=== PATIENT | male | born 1975 | race Caucasian/White ===

== ENCOUNTER 2016-11-18 14:17 | Emergency (ER) | payer BC ==
[~2016-11-18] VITALS: Ht 177.8 cm; Wt 128.4 kg
[~2016-11-18 14:17] MED LIST: KLONOPIN0.5 MG PO; LISINOPRIL20 MG G-TUBE; TOPAMAX200 MG PO
[2016-11-18 14:33] LABS: POINT-OF-CARE METER ID UU14100415
[2016-11-18 14:49] LABS: ADD MIUA? YES; BILIRUBIN NEGATIVE; BLOOD SMALL; COLOR YELLOW ((YELLOW)); GLUCOSE (STRIP) NEGATIVE; KETONES NEGATIVE; LEUKOCYTES NEGATIVE; NITRITE NEGATIVE; PROTEIN (STRIP) NEGATIVE; UROBILINOGEN 0.2 MG/DL (0.2-1.0)
[2016-11-18 14:52] LABS: BACTERIA RARE /HPF; EPITHELIAL CELLS NONE SEEN /HPF; HYALINE CASTS 0-5 /LPF; MUCUS TRACE /LPF; RED BLOOD CELLS 0-5 /HPF (0-5); UCUL ADDED? NO; WHITE BLOOD CELLS 0-5 /HPF (0-5)
[2016-11-18 14:55] LABS: HEMATOCRIT 44.7 % (38.0-50.0); MCH 32.6 PG (29.0-34.0); MCHC 34.5 G/DL (30.0-36.0); MCV 94.5 FL (86-99); MEAN PLAT.VOLUME 9.5 uM^3 (9.0-12.4); PLATELET COUNT 248 K/uL (156-360); RBC DIS.WIDTH-CV 11.9 % (11.8-14.6); RBC DIS.WIDTH-SD 41.3 % (39-53); RED BLOOD COUNT 4.73 M/uL (4.00-5.50); WHITE BLOOD COUNT 10.6 K/uL (4.1-10.2)
[2016-11-18 15:04] LABS: CHLORIDE 105 mEq/L (99-109); POTASSIUM 4.1 mEq/L (3.7-5.4); SODIUM 137 mEq/L (136-147)
[2016-11-18 15:06] LABS: GLUCOSE 108 mg/dL (70-99)
[2016-11-18 15:07] LABS: ANION GAP 6 MEQ/L (2-14)
[2016-11-18 15:10] LABS: GFR ESTIMATE (CALCULATED) > 59 mL/min/; UREA NITROGEN (BUN) 10 mg/dL (9-23)
[2016-11-18 15:30] LABS: SERUM ETHYL ALCOHOL < 10 mg/dL
[2016-11-18 18:48] VITALS: BP 162/81
== END 2016-11-18 18:53 | disposition home or self-care (01) ==
LOC: EME 14:17
DX: R41.0 Disorientation, unspecified (principal); R53.83 Other fatigue; R51 Headache; I10 Essential (primary) hypertension; E11.9 Type 2 diabetes mellitus without complications; Z79.84 Long term (current) use of oral hypoglycemic drugs; F17.200 Nicotine dependence, unspecified, uncomplicated
CPT/HCPCS: 70450; 71020; 80048; 81003; 82948; 85027; 93005; 99281; 99285; G0480